=== PATIENT | male | born 1995 | race Caucasian/White ===

== ENCOUNTER 2021-04-20 10:19 | Outpatient (CLI) | payer OTHER | END 2021-04-20 10:20 | disposition home or self-care (01) | LOC: CSHMRI 10:19 | PROVIDERS: ATTEND Family Medicine | DX: M25.551 Pain in right hip (principal); M46.1 Sacroiliitis, not elsewhere classified; M76.11 Psoas tendinitis, right hip ==

== ENCOUNTER 2022-04-21 10:35 | Day surgery (SDC) | payer OTHER ==
[2022-04-19 12:08] VITALS: BMI 27.1
[~2022-04-21 10:35] MED LIST: Bupivacaine PF 0.5% 30 ML VIAL ONE; EPINEPHrine 1 MG/ML AMP ONE
[2022-04-21] MEDS ORDERED: CEFAZOLIN 2 GM VIAL ONE (12:46)
[2022-04-21] MEDS ORDERED: PROPOFOL 20 ML ONE (12:47)
[2022-04-21] MEDS ORDERED: Midazolam HCl 2 mg/2 ml Vial ONE (12:47)
[2022-04-21] MEDS ORDERED: Rocuronium Bromide 10 MG/ML (10ML VIAL) ONE (12:47)
[2022-04-21] MEDS ORDERED: Lidocaine 1% PF 5 ML VIAL ONE (12:47)
[2022-04-21] MEDS ORDERED: Ondansetron PF 4 MG/2 ML Vial ONE (12:47)
[2022-04-21] MEDS ORDERED: Dexamethasone 20 MG/5 ML VIAL ONE (12:47)
[2022-04-21] MEDS ORDERED: Fentanyl 100 MCG/2 ML VIAL ONE (12:47)
[2022-04-21] MEDS ORDERED: Glycopyrrolate 0.2 MG/ML 5 ML SYRINGE ONE (13:44)
[2022-04-21] MEDS ORDERED: Ketorolac Tromethamine 30 MG/ML VIAL ONE (13:56)
[2022-04-21] MEDS ORDERED: HYDROcodone/Acetaminophen 5/325 mg Tablet PO PRN (14:05)
[2022-04-21] MEDS ORDERED: Meperidine HCl/PF 25 MG/ML VIAL ONE (14:15)
== END 2022-04-21 15:25 | disposition home or self-care (01) ==
LOC: CSHSDC 10:35
PROVIDERS: ATTEND Surgery
PROC: 0YU54JZ Supplement Right Inguinal Region with Synthetic Substitute, Percutaneous Endoscopic Approach (ICD-10-PCS; principal; 2022-04-21)
DX: K40.90 Unilateral inguinal hernia, without obstruction or gangrene, not specified as recurrent (principal)
CPT/HCPCS: C1713; J0171; J1100; J1885; J2175; J2250; J2405; J2704; J3010; S0020